=== PATIENT | female | born 1990 | race African-American/Black ===

== ENCOUNTER 2025-10-08 08:59 | Day surgery (SDC) | payer BC ==
[2025-10-07 10:22] VITALS: BMI 19.2
[2025-10-08] MEDS ORDERED: AFRIN NASAL MIST 15 ML BOT ONE ×2 (09:44→09:59)
[2025-10-08 09:46] LABS: Hematocrit 35.5 % (34.9-44.5); Hemoglobin 11.1 g/dL (12.0-15.5)
[2025-10-08] MEDS ORDERED: Lidocaine 1% w/Epinephrine 1:200K 30 ML VIAL ONE (09:59)
[2025-10-08] MEDS ORDERED: Bacitracin 1 PK ONE (09:59)
[2025-10-08] MEDS ORDERED: PROPOFOL 20 ML ONE (10:01)
[2025-10-08] MEDS ORDERED: Ondansetron PF 4 MG/2 ML Vial ONE (10:02)
[2025-10-08] MEDS ORDERED: Lidocaine 1% PF 5 ML VIAL ONE (10:02)
[2025-10-08] MEDS ORDERED: Oxymetazoline HCl 0.05% (15 ML) ONE (10:25)
== END 2025-10-08 13:15 | disposition home or self-care (01) ==
LOC: CSHSDC 08:59
PROVIDERS: ATTEND Otolaryngology Plastic Surgery within the Head & Neck
PROC: 09BR8ZZ Excision of Left Maxillary Sinus, Via Natural or Artificial Opening Endoscopic (ICD-10-PCS; principal; 2025-10-08)
PROC: 09BU8ZZ Excision of Right Ethmoid Sinus, Via Natural or Artificial Opening Endoscopic (ICD-10-PCS; principal; 2025-10-08)
PROC: 09BV8ZZ Excision of Left Ethmoid Sinus, Via Natural or Artificial Opening Endoscopic (ICD-10-PCS; principal; 2025-10-08)
PROC: 09BQ8ZZ Excision of Right Maxillary Sinus, Via Natural or Artificial Opening Endoscopic (ICD-10-PCS; principal; 2025-10-08)
PROC: 09BS8ZZ Excision of Right Frontal Sinus, Via Natural or Artificial Opening Endoscopic (ICD-10-PCS; principal; 2025-10-08)
PROC: 8E09XBZ Computer Assisted Procedure of Head and Neck Region (ICD-10-PCS; principal; 2025-10-08)
PROC: 09BT8ZZ Excision of Left Frontal Sinus, Via Natural or Artificial Opening Endoscopic (ICD-10-PCS; principal; 2025-10-08)
DX: J32.8 Other chronic sinusitis (principal); J34.2 Deviated nasal septum; J34.3 Hypertrophy of nasal turbinates; J30.89 Other allergic rhinitis; Z90.710 Acquired absence of both cervix and uterus
CPT/HCPCS: 36415; 85014; 85018; J1010; J1100; J2405; J2704; J3010